=== PATIENT | female | born 1985 | race Caucasian/White ===

== ENCOUNTER 2016-07-30 12:28 | Outpatient (CLI) | payer MEDICAID ==
[~2016-07-30] VITALS: Ht 167.6 cm; Wt 150.0 kg
[2016-07-30 13:10] LABS: ADD SCAN DIFF NO
[2016-07-30 13:13] LABS: BASOPHILS % 0.1 % (0.0-2.0); EOSINOPHILS % 0.5 % (0.0-7.0); HEMATOCRIT 32.4 % (37.0-47.0); HEMOGLOBIN 10.6 g/dl (12.0-16.0); LYMPHOCYTES # 1.8 10^3/ul (0.8-2.9); MEAN CORPUSCULAR HEMOGLOBIN 28.5 pg (29.0-33.0); MEAN CORPUSCULAR HGB CONC 32.7 g/dl (32.0-37.0); MEAN CORPUSCULAR VOLUME 87.1 fl (82.0-101.0); MEAN PLATELET VOLUME 11.7 fl (7.4-10.4); MONOCYTE # 0.3 10^3/ul (0.3-0.9); NEUTROPHIL # 5.4 10^3/ul (1.6-7.5); PLATELET COUNT 161 10^3/UL (140-415); RED BLOOD COUNT 3.72 10^6/ul (4.20-5.40); RED CELL DISTRIBUTION WIDTH 14.7 % (11.5-14.5); WHITE BLOOD COUNT 7.5 10^3/ul (4.8-10.8)
[2016-07-30 13:23] LABS: INR 0.87; POTASSIUM 3.6 mmol/L (3.5-5.1); PROTIME 11.8 Sec (12.2-14.2); PT RATIO 0.9
[2016-07-30 13:24] LABS: PARTIAL THROMBOPLASTIN TIME 24.6 Sec (25.0-35.0)
[2016-07-30 13:25] LABS: ALBUMIN/GLOBULIN RATIO 0.76; BILIRUBIN,INDIRECT 0.1 mg/dl (0-1.1); BILIRUBIN,TOTAL 0.1 mg/dl (0.2-1.3); CREATININE 0.62 mg/dl (0.44-1.00); TOTAL PROTEIN 6.9 g/dl (6.1-8.1)
[2016-07-30 13:26] LABS: ADD UMIC YES; URIC ACID 5.7 mg/dl (3.1-7.9); URINE BILIRUBIN (Dip) NEGATIVE (NEGATIVE); URINE BLOOD (Dip) NEGATIVE (NEGATIVE); URINE COLOR LT. YELLOW (YELLOW); URINE GLUCOSE (Dip) NEGATIVE (NEGATIVE); URINE KETONES (Dip) NEGATIVE (NEGATIVE); URINE LEUKOCYTE ESTERASE (Dip) 1+ (NEGATIVE); URINE NITRITE (Dip) NEGATIVE (NEGATIVE); URINE TOTAL PROTEIN (Dip) NEGATIVE (NEGATIVE); URINE UROBILINOGEN (Dip) 0.2 E.U./dL (0.1-1.0)
[2016-07-30 13:45] LABS: BARBITURATES Negative (NEGATIVE); BENZODIAZEPINES Negative (NEGATIVE); CANNABINOIDS Negative (NEGATIVE); COCAINE Negative (NEGATIVE); OPIATES Negative (NEGATIVE)
[2016-07-30 13:55] LABS: URINE RBCS 0-2 /HPF (0)
[2016-07-30 13:56] LABS: BACTERIA,URINE MODERATE
--- NOTE | 2016-07-30 14:01 | RADRPT ---
PROCEDURE: OB ultrasound for biophysical profile CLINICAL INDICATION: induced hypertension TECHNIQUE: Multiple sonographic images of the pelvis were obtained. Transabdominal views of the g ravid uterus are available for review. The images were reviewed on a PACS workstation. COMPARISON: None FINDINGS: breathing movement = 2/2 tone = 2/2 motion = 2/2 KEZIA = 2/2 KEZIA = 12.9 cm Single live intrauterine with cardiac activity of 125 bpm. position is cephal ic. The placenta is fundal. IMPRESSION: 1. Single live intrauterine gestation. 2. Biophysical profile = 8/8. 3. KEZIA = 12.9 cm. RPTAT: HH .Trista Alford MD, MD Date Time Electronically viewed and signed by .Trista Alford MD, on 07/30/2016 14:01 .G/
--- NOTE | 2016-07-30 14:25 | RADRPT ---
PROCEDURE: US OB CLINICAL INDICATION: PIH TECHNIQUE: Multiple sonographic images of the pelvis were obtained. The images were reviewed on a PACS workstation. COMPARISON: None FINDINGS: The cervix is not well visualized. There is a single viable intrauterine gestation. Cardiac activity is present with 132 beats per minute. There is a vertex presentation. The placenta is fundal. There is no evidence for an abruption or placenta previa. There is a subjectively normal amount of amniotic fluid. Measurements were made in order to determine age. The results are as follows (cm): BPD =9.51 HC =34.19 AC =35.30 FL =7.08 Estimated gestational age by ultrasound of approximately 38 weeks, 3 days. The estimated date of delivery by ultrasound is 08/10/2016. Estimated gestational age by LMP of approximately 38 weeks, 4 days. The estimated date of delivery by LMP is 08/09/2016. EFW = 3525 grams (65th percentile) IMPRESSION: Single viable intrauterine gestation of approximately 38 weeks, 3 days . The estimated date of delivery is 08/10/2016 . Dating by ultrasound is within 1 day of dating by LMP. Estimated weight is in the 65th percentile. RPTAT: EE Physician Mely Date Time Electronically viewed and signed by Physician Mely on 07/30/2016 14:24 /
[2016-07-30] MEDS ORDERED: PRENAT PO (15:28)
[2016-07-30 15:31] VITALS: Ht 167.6 cm; Wt 150.0 kg
--- NOTE | 2016-07-30 15:31 | HP ---
Date/Time of Note Date/Time of Note DATE: 07/30/16 TIME: 15:04 OB - History Hx of Present Free Text/Dictation OB Triage Pt is a 31yo at 38+4 presenting from clinic for elevated BPs. Pt denies SHERIFF , visual changes or RUQ pain. Denies LOF or UCs and reports normal FM. Pt denies hx of drug use. When asked regarding antihistamine use, pt states she used something for a runny nose 3 days or so ago. PROCEDURE: US OB CLINICAL INDICATION: PIH TECHNIQUE: Multiple sonographic images of the pelvis were obtained. The images were reviewed on a PACS workstation. COMPARISON: None FINDINGS: The cervix is not well visualized. There is a single viable intrauterine gestation. Cardiac activity is present with 132 beats per minute. There is a vertex presentation. The placenta is fundal. There is no evidence for an abruption or placenta previa. There is a subjectively normal amount of amniotic fluid. Measurements were made in order to determine age. The results are as follows (cm): BPD = 9.51 HC = 34.19 AC = 35.30 FL = 7.08 Estimated gestational age by ultrasound of approximately 38 weeks, 3 days. The estimated date of delivery by ultrasound is 08/10/2016. Estimated gestational age by LMP of approximately 38 weeks, 4 days. The estimated date of delivery by LMP is 08/09/2016. EFW = 3525 grams (65th percentile) IMPRESSION: Single viable intrauterine gestation of approximately 38 weeks, 3 days . The estimated date of delivery is 08/10/2016 . Dating by ultrasound is within 1 day of dating by LMP. Estimated weight is in the 65th percentile. PROCEDURE: OB ultrasound for biophysical profile CLINICAL INDICATION: induced hypertension TECHNIQUE: Multiple sonographic images of the pelvis were obtained. Transabdominal views of the gravid uterus are available for review. The images were reviewed on a PACS workstation. COMPARISON: None FINDINGS: breathing movement = 2/2 tone = 2/2 motion = 2/2 KEZIA = 2/2 KEZIA = 12.9 cm Single live intrauterine with cardiac activity of 125 bpm. position is cephalic. The placenta is fundal. IMPRESSION: 1. Single live intrauterine gestation. 2. Biophysical profile = 8/8. 3. KEZIA = 12.9 cm. Estimated Due Date: Aug 09, 2016 : 3 Para: 2 Care: Good Care OB Admission Exam Vital Signs Vital Signs 98.0 163/96 101 20 BPs 140s-160s/80s-90s 149/99, 162/93, 163/96, 143/82 Last 72 hours Lab Results CBC & BMP 07/30/16 12:45 Liver Function Test 07/30/16 12:45 Alanine Aminotransferase (ALT/SGPT) 24 Albumin 3.0 L Alkaline Phosphatase 128 H Aspartate Amino Transf (AST/SGOT) 22 Direct Bilirubin 0.00 Total Protein 6.9 OB Assessment/Plan Other Assessment: Elevated BPs without e/o PreEclampsia Positive Utox for Amphetamines Incomplete NST Normal BPP/KEZIA/EFW Other plan: Possible elevated BPs 2/2 positive urine tox screen Given severe range BPs at term, recommended pt stay for at minimum observation and ideally delivery Pt declines further monitoring to obtain continuous NST (FHR intermittent although reassuring) and for continued observation or for admission or delivery AMA paperwork signed after discussing maternal and risks of elevated BPs including stroke, impairment, maternal , placental abruption or and pt verbalizing risks back to me in presence of RN. Pt made aware that she may return to triage for continued observation or admission for delivery at any time If pt does not return to the hospital sooner, she will follow-up as scheduled in Dr. Gongora's clinic on 08/02/16 MIKAEL ANGEL MD Jul 30, 2016 15:14
[2016-07-30 15:32] VITALS: BP 160/90; PULSE 80; RESP 20
--- NOTE | 2016-07-30 15:50 | TRIAGE ---
OB Triage Datetime Report Generated by CPN: 07/30/2016 15:49 Datetime: 07/30/2016 14:22 Stage of : OB Triage Datetime: 07/30/2016 13:37 Heart Rate FHR Baseline Rate: 135 Monitor Mode: External US Variability: Moderate 6-25 bpm Accelerations: 15X15 Decelerations: None Category: Category I Comments: NST REACTIVE FOR GESTATIONAL AGE Datetime: 07/30/2016 12:56 Stage of : OB Triage Assessment Type: Triage Maternal Assessment Level of Consciousness: Fully Conscious DTR's/Clonus: DTRs 2+; No Clonus Headache: Denies Blurred Vision: No Respiratory Effort: Unlabored; Regular Rhythm; Equal Expansion Breath Sounds, Left: Clear and Equal Breath Sounds, Right: Clear and Equal Nausea/Vomiting: Denies RUQ Epigastric Pain: Denies Lower Extremities Edema: Bilateral Lower Extremities Degree: 3+ Upper Extremities Edema: None Degree: None Facial Edema: None Temperature Route: Axillary Fall Risk Assessment History of Falling: (0) No Secondary Diagnosis: (0) No Ambulatory Aid: (0) Bedrest/Nurse Assist IV Therapy: (0) No Gait: (0) Normal/Bedrest/Immobile Mental Status: (0) Oriented to Own Ability Fall Score: 0 Fall Risk Score Definition: No Risk: No action required Datetime: 07/30/2016 12:54 EGA: 38.4 Datetime: 07/30/2016 12:53 Time of Arrival: 07/30/2016 12:22 Arrived By: Ambulatory Arrived From: Office Chief Complaint: R/O PIH Movement: Present Contractions: Denies/Absent Rupture of Membranes: Denies Vaginal Bleeding: None Vaginal Discharge: Denies Recent Sexual Intercouse: Denies Abdominal Trauma: Not Applicable Patient Complaints: None Time Provider Notified: 07/30/2016 12:40 Provider Notified: DR. WONG Initial Plan: NST
== END 2016-07-30 14:22 | disposition home or self-care (01) ==
LOC: OBT 12:28 → L-D 12:28 → OBT 14:22
PROVIDERS: ATTEND Obstetrics & Gynecology
DX: O26.893 Other specified pregnancy related conditions, third trimester (principal); R03.0 Elevated blood-pressure reading, without diagnosis of hypertension; O99.323 Drug use complicating pregnancy, third trimester; F15.90 Other stimulant use, unspecified, uncomplicated; Z3A.38 38 weeks gestation of pregnancy
CPT/HCPCS: 76815; 76818; 80053; 80307; 81001; 84560; 85025; 85384; 85610; 85730; Z7500; 81003; G0463